=== PATIENT | female | born 1990 | race African-American/Black ===

== ENCOUNTER 2020-02-03 14:59 | Inpatient (IN) ==
[2020-02-03] MEDS ORDERED: MEPERIDINE 50 MG/1 ML VIAL IV PRN (15:25)
[2020-02-03] MEDS ORDERED: BUTORPHANOL 2 MG/ML VIAL IV PRN (15:25)
[2020-02-03] MEDS ORDERED: ONDANSETRON 4 MG/2 ML VIAL IV PRN (15:25)
[2020-02-03] MEDS ORDERED: DINOPROSTONE VAG GEL 10 MG SYRINGE VAG ONE (15:27)
[2020-02-03 15:49] LABS: Basophils % 0.3 % (0.0-0.8); Eosinophils # 0.1 10*3/uL (0.0-0.87); Eosinophils % 0.7 % (0.00-10.9); Hematocrit 38.6 VOL% (35.7-47.0); Hemoglobin 12.3 GM/DL (12.0-16.0); Immature Granulocytes % 0.3 %; Immature Granulocytes Absolute 0.03 #; Lymphocytes # 1.9 10*3/uL (1.4-4.0); Mean Corpuscular HGB Conc 31.9 GM/DL (32-36); Mean Corpuscular Volume 96.5 FL (87-102); Mean Platelet Volume 10.8 FL (9.6-12.0); Monocytes % 7.2 % (1.7-12.7); Neutrophils % 72.5 % (38.7-73.9); Platelet Count 217 T/CUMM (130-400); Red Cell Distribution Width 15.2 % (9.3-17.3); White Blood Count 9.8 T/CUMM (4-12)
[2020-02-03 16:01] LABS: Alanine Aminotransferase 14 U/L (13-56); Albumin 2.4 G/DL (3.4-5.0); Alkaline Phosphatase 173 U/L (45-117); Aspartate Amino Transferase 9 U/L (0-37); Bilirubin,Total < 0.39 MG/DL (0.2-1.0); Blood Urea Nitrogen 9 MG/DL (7-18); Calcium 9.3 MG/DL (8.5-10.1); Estimated Glom Filtration Rate 114 ML/MIN; Glucose 157 MG/DL (74-106); Total Protein 7.2 G/DL (6.4-8.3); Uric Acid 4.5 MG/DL (2.6-6.0)
[2020-02-03] MEDS: LACTATED RINGERS 1,000 ML IV SCH (19:34)
[2020-02-03] MEDS ORDERED: SIMETHICONE CHEW 125 MG TABLET PO PRN (21:26)
[2020-02-04] MEDS ORDERED: OXYTOCIN/LR 20 UNIT/1,000 ML BAG IV SCH (01:00)
[2020-02-04] MEDS ORDERED: ONDANSETRON 4 MG/2 ML VIAL IV ONE (07:39)
[2020-02-04] MEDS ORDERED: diphenhydrAMINE 50 MG/1 ML VIAL IV PRN ×2 (07:39)
[2020-02-04] MEDS ORDERED: CITRIC ACID/SODIUM CITRATE 30 ML UDCUP PO ONE (07:39)
[2020-02-04] MEDS ORDERED: PROMETHAZINE 25 MG/1 ML VIAL IM ONE (07:39)
[2020-02-04] MEDS ORDERED: hydrOXYzine HCL 25 MG/1 ML VIAL IM PRN (07:39)
[2020-02-04] MEDS ORDERED: FAMOTIDINE 20 MG/2 ML VIAL IV ONE (07:39)
[2020-02-04] MEDS ORDERED: ePHEDrine 50 MG/ML AMP IV PRN (07:39)
[2020-02-04] MEDS ORDERED: NALOXONE 0.4 MG/ML VIAL IV PRN (07:39)
[2020-02-04] MEDS ORDERED: fentaNYL 2 MCG/ROPIV 0.2% EPID 100 ML EPIDURAL SCH (08:00)
[2020-02-04] MEDS: LACTATED RINGERS 1,000 ML IV SCH (08:14)
[2020-02-04] MEDS ORDERED: ceFAZolin 3,000 MG in SYRINGE 1 EACH IV ONE (08:45)
[2020-02-04] MEDS ORDERED: OXYTOCIN 10 UNIT/ML VIAL IM ONE (08:47)
[2020-02-04] MEDS ORDERED: OXYTOCIN/LR 30 UNIT/1,000 ML BAG IV ONE (08:47)
[2020-02-04] MEDS ORDERED: BUPIVACAINE SPINAL 0.75% 2 ML AMP SPINAL ONE (08:48)
[2020-02-04] MEDS ORDERED: miSOPROStoL 200 MCG TABLET ONE (08:49)
[2020-02-04] MEDS ORDERED: BUPIVACAINE 0.5% 50 ML VIAL ONE (08:49)
[2020-02-04] MEDS ORDERED: TRANEXAMIC ACID 1,000 MG/10 ML VIAL ONE (08:50)
[2020-02-04] MEDS ORDERED: CARBOPROST TROMETHAMINE 250 MCG/ML AMP IM ONE (08:50)
[2020-02-04] MEDS ORDERED: METHYLERGONOVINE 0.2 MG/1 ML AMP ONE (08:50)
[2020-02-04] MEDS ORDERED: OXYTOCIN/LR 20 UNIT/1,000 ML BAG IV ONE ×2 (08:50→10:03)
[2020-02-04] MEDS ORDERED: ONDANSETRON 4 MG/2 ML VIAL IV PRN (10:03)
[2020-02-04] MEDS ORDERED: ACETAMINOPHEN 325 MG TABLET PO PRN (10:03)
[2020-02-04] MEDS ORDERED: RHO(D) IMMUNE GLOBULIN 300 MCG SYRINGE IM ONE (10:03)
[2020-02-04] MEDS ORDERED: SIMETHICONE CHEW 80 MG TABLET PO PRN (10:03)
[2020-02-04] MEDS ORDERED: ceFAZolin 1,000 MG in SYRINGE 1 EACH IV SCH (10:30)
[2020-02-04] MEDS ORDERED: LACTATED RINGERS 1,000 ML IV SCH (10:30)
[2020-02-04] MEDS ORDERED: propofoL 200 MG/20 ML VIAL IV ONE (10:37)
[2020-02-04] MEDS ORDERED: PHENYLEPHRINE 1 MG/10 ML SYRINGE IV ONE (10:38)
[2020-02-04] MEDS ORDERED: GLYCOPYRROLATE 0.4 MG/2 ML VIAL ONE (10:38)
[2020-02-04] MEDS ORDERED: ONDANSETRON 4 MG/2 ML VIAL ONE (10:38)
[2020-02-04] MEDS ORDERED: MORPHINE 10 MG/10 ML VIAL ONE (10:38)
[2020-02-04] MEDS ORDERED: EPINEPHrine 1 MG/ML VIAL ONE (10:39)
[2020-02-04] MEDS ORDERED: DEXAMETHASONE 4 MG/1 ML VIAL ONE (10:39)
[2020-02-04] MEDS ORDERED: LIDOCAINE 2% 5 ML VIAL ONE (10:39)
[2020-02-04] MEDS: CLINDAMYCIN INJ 900 MG in PREMIX 1 EACH IV SCH (17:27)
[2020-02-04 17:45] LABS: Basophils % 0.2 % (0.0-0.8); Hematocrit 35.7 VOL% (35.7-47.0); Hemoglobin 11.6 GM/DL (12.0-16.0); Immature Granulocytes % 0.4 %; Immature Granulocytes Absolute 0.05 #; Lymphocytes # 0.8 10*3/uL (1.4-4.0); Lymphocytes % 5.7 % (21.3-54.2); Mean Corpuscular HGB Conc 32.5 GM/DL (32-36); Mean Corpuscular Volume 93.9 FL (87-102); Mean Platelet Volume 10.5 FL (9.6-12.0); Monocytes % 4.9 % (1.7-12.7); Neutrophils % 88.8 % (38.7-73.9); Platelet Count 199 T/CUMM (130-400); Red Cell Distribution Width 15.1 % (9.3-17.3); White Blood Count 14.3 T/CUMM (4-12)
[2020-02-05] MEDS: DOCUSATE SODIUM 100 MG CAPSULE PO SCH ×3 (00:20→19:45)
[2020-02-05] MEDS: CLINDAMYCIN INJ 900 MG in PREMIX 1 EACH IV SCH (00:30)
[2020-02-05] MEDS: IBUPROFEN 800 MG TABLET PO PRN ×3 (02:56→19:45)
[2020-02-05 07:46] LABS: Basophils % 0.2 % (0.0-0.8); Eosinophils % 0.2 % (0.00-10.9); Hematocrit 34.5 VOL% (35.7-47.0); Hemoglobin 11.2 GM/DL (12.0-16.0); Immature Granulocytes % 0.5 %; Immature Granulocytes Absolute 0.07 #; Lymphocytes % 15.5 % (21.3-54.2); Mean Corpuscular HGB Conc 32.5 GM/DL (32-36); Mean Corpuscular Volume 94.5 FL (87-102); Mean Platelet Volume 11.1 FL (9.6-12.0); Monocytes % 9.9 % (1.7-12.7); Neutrophils % 73.7 % (38.7-73.9); Platelet Count 204 T/CUMM (130-400); Red Blood Count 3.65 MC/CUMM (3.8-5.5); Red Cell Distribution Width 15.1 % (9.3-17.3); White Blood Count 12.8 T/CUMM (4-12)
[2020-02-05] MEDS: METOCLOPRAMIDE 10 MG TABLET PO SCH ×3 (09:05→23:35)
[2020-02-05] MEDS: MAGNESIUM HYDROXIDE SUSP 30 ML UDCUP PO PRN ×2 (09:06→19:45)
[2020-02-05] MEDS: MULTIVITAMIN (PRENATAL) TABLET PO SCH (09:06)
[2020-02-05] MEDS ORDERED: KETOROLAC 30 MG/1 ML VIAL IV PRN (12:40)
[2020-02-05] MEDS ORDERED: KETOROLAC 10 MG TABLET PO PRN (12:47)
[2020-02-05] MEDS ORDERED: oxyCODONE/ACETAMINOPHEN 5-325 MG TABLET ONE (17:54)
[2020-02-05] MEDS: oxyCODONE/ACETAMINOPHEN 5-325 MG TABLET PO PRN ×2 (18:00→23:35)
[2020-02-06] MEDS: IBUPROFEN 800 MG TABLET PO PRN (05:11)
[2020-02-06] MEDS: oxyCODONE/ACETAMINOPHEN 5-325 MG TABLET PO PRN (05:12)
[2020-02-06] MEDS ORDERED: MAGNESIUM CITRATE 300 ML BOTTLE PO ONE (09:14)
[2020-02-06] MEDS: DOCUSATE SODIUM 100 MG CAPSULE PO SCH (09:30)
[2020-02-06] MEDS: MULTIVITAMIN (PRENATAL) TABLET PO SCH (09:30)
[2020-02-06] MEDS: METOCLOPRAMIDE 10 MG TABLET PO SCH (09:30)
[2020-02-06 10:54] VITALS: BP 126/75
== END 2020-02-06 12:30 | disposition home or self-care (01) | DRG 540 ==
LOC: EDSEX 14:59 → N.LDOUT 14:59 → N.LD 15:04 → N.OB 02-04 13:49
PROVIDERS: ADMIT Obstetrics & Gynecology; ATTEND Obstetrics & Gynecology
PROC: LDCSECT (ICD-10-PCS; 2020-02-04 09:00)